=== PATIENT | male | born 1975 | race Caucasian/White ===

== ENCOUNTER 2017-08-11 14:26 | Day surgery (SDC) | payer OTHER ==
[2017-08-11] MEDS ORDERED: LR 1,000 ML IV ONE (14:36)
[2017-08-11 14:49] VITALS: PULSE 93
--- NOTE | 2017-08-11 15:45 | PDANEPAE ---
ANE History of Present Illness here for EGD/EUS ANE Past Medical History - Cardiovascular History Hx Hypertension: No Hx Arrhythmias: Yes Hx Chest Pain: No Cardiovascular History Comment: HX OF AFIB 2 EPISODES @10 YRS AGO - Pulmonary History Hx COPD: No Hx Asthma/Reactive Airway Disease: No Hx Recent Upper Respiratory Infection: No Hx Oxygen in Use at Home: No Hx Sleep Apnea: No Sleep Apnea Screening Result - Last Documented: Negative - Neurologic History Hx Cerebrovascular Accident: No Hx Seizures: No Hx Dementia: No - Endocrine History Hx Diabetes: No - Renal History Hx Renal Disorders: No - Liver History Hx Hepatic Disorders: Yes Hepatic History Comment: DECREASED LIVER FUNCTION - Neurological & Psychiatric Hx Hx Neurological and Psychiatric Disorders: No - Cancer History Hx Cancer: No - Congenital Disorder History Hx Congenital Disorders: No - GI History Hx Gastrointestinal Disorders: Yes Gastrointestinal History Comment: ULCERTIVE COLITIS - Other Health History Other Health History: IRON DEFIECENCY ANEMIA. 2 INFUSIONS OF IRON - Chronic Pain History Chronic Pain: No - Surgical History Prior Surgeries: CHOLEYCYSTITIS,MULTIPLE EGD'S ANE Review of Systems Review of systems is: negative Review of Systems: - Exercise capacity Exercise capacity: >=4 METS METS (RN): 4 METS ANE Patient History - Allergies Allergies/Adverse Reactions: ertapenem [From Invanz] Allergy (Mild, Verified 08/08/17 19:48) Rash - Home Medications Home medications: home medication list seen and reviewed Home Medications: Aspirin [Aspirin 81mg (OTC)] 04/26/13 [Last Taken 08/08/17] Ibuprofen [Motrin 200 mg (OTC)] 04/26/13 [Last Taken 07/21/17] Ursodiol [Actigall] 04/26/13 [Last Taken 08/10/17] diphenhydrAMINE [Benadryl 50 MG (OTC)] 04/26/13 [Last Taken 08/10/17] - NPO status NPO Since - Liquids (Date): 08/11/17 NPO Since - Liquids (Time): 22:30 NPO Since - Solids (Date): 08/10/17 NPO Since - Solids (Time): 21:00 - Smoking Hx Smoking Status: Never smoked - Family Anes Hx Family Hx Anesthesia Complications: NONE ANE Labs/Vital Signs - Vital Signs Blood Pressure: 144/100 Heart Rate: 93 Respiratory Rate: 16 O2 Sat (%): 96 Height: 185.42 cm Weight: 95.254 kg ANE Physical Exam - Airway Neck exam: FROM Mallampati Score: Class 1 - Pulmonary Pulmonary: no respiratory distress - Cardiovascular Cardiovascular: regular rate and rhythym - ASA Status ASA Status: II ANE Anesthesia Plan Anesthesia Plan: general endotracheal anesthesia, GA with mask
[2017-08-11] MEDS ORDERED: fentaNYL 100 MCG/2 ML INJ IVP PRN (15:47)
[2017-08-11] MEDS ORDERED: NALOXONE HCL 0.4 MG/ML INJ IVP PRN (15:47)
[2017-08-11] MEDS ORDERED: HYDROmorphONE/DILAUDID 1 MG/ML INJ IVP PRN (15:47)
[2017-08-11] MEDS ORDERED: PROMETHAZINE HCL 25 MG/ML INJ IVP PRN (15:47)
[2017-08-11] MEDS ORDERED: NS 500 ML IV PRN (15:47)
[2017-08-11] MEDS ORDERED: ALBUTEROL 3 ML DEYVIAL IH PRN (15:47)
[2017-08-11] MEDS ORDERED: DEXAMETHASONE 4 MG/ML VIAL IVP PRN (15:47)
[2017-08-11] MEDS ORDERED: PROPOFOL/EMULSION 500 MG/50 ML BOTTLE IV ONE ×2 (16:04→16:15)
[2017-08-11] MEDS ORDERED: PROPOFOL 200 MG/20 ML VIAL ONE ×2 (16:33→16:46)
[2017-08-11] MEDS ORDERED: INDOMETHACIN 50 MG SUPP PR PRN (16:56)
--- NOTE | 2017-08-11 16:56 | PDGENHP ---
History & Physical Chief Complaint: abnl enlarged l.n. History of Present Illness: 42 year old male with a hx of UC with J pouch, PSC? presents for evaluation of abnormal enlarged lymph nodes. Pertinent Past, Social, Family History: PMHx: UC, PSC. FaMHx: no lymphoma Relevant Physical Exam: HEENT: anicteric. CV: RRR +s1s2. Lungs: CTAB. Abd: soft, nt, + bs Cardiorespiratory Assessment: ASA 2
[2017-08-11] MEDS ORDERED: NS 500 ML IV SCH (17:00)
--- NOTE | 2017-08-11 17:04 | GIREPORT ---
[facility] Surgical [facility] - Endoscopy Department Patient Name: David Michael Procedure Date: 08/11/2017 8:43 AM Patient Type: Outpatient Attending MD/ ER Physician: Yovani Arias MD Procedure: Upper EUS Indications: Abnormal abdominal/pelvic CT scan, Epigastric abdominal pain, Dyspepsia Patient Profile: 42 year old male presents for evaluation of epigastric pain, dyspepsia, and abnormal CT scan.. Providers: Yovani Arias MD Medicines: Monitored Anesthesia Care Complications: No immediate complications. Estimated blood loss: Minimal. Description of Procedure: After obtaining informed consent, the endoscope was passed under direct vision. Throughout the procedure, the patient's blood pressure, pulse, and oxygen saturations were monitored continuously. The Endoscope was intro duced through the mouth, and advanced to the second part of duodenum. The Endosonoscope was introduced through the mouth, and advanced to the sec ond part of duodenum. The upper EUS was accomplished without difficulty. Th e patient tolerated the procedure well. Findings: Endoscopic Finding : The examined esophagus was normal. A small hiatal hernia was present. Patchy mildly erythematous mucosa was found in the gastric body and in the gastric antrum. Biopsies were taken with a cold forceps for histology. The examined duodenum was normal. Endosonographic Finding : Many enlarged lymph nodes were visualized in the wu hepatis region. There was at least 5-7 lymph nodes noted from 1cm -4cm in size. They were all ill defined, irregular, and isoechoic The largest measured 35 mm by 39 mm i n maximal cross-sectional diameter. The nodes were irregular, isoechoic a nd had poorly defined margins. Fine needle aspiration for cytology was performed of the largest lymph nodes.. Color Doppler imaging was utiliz ed prior to needle puncture to confirm a lack of significant vascular structures within the needle path. Three passes were made with the 25 g auge needle using a transduodenal approach. A stylet was used. A cyber legal advisor was present and performed a preliminary cytologic examination. The cellular ity of the specimen was adequate. Two passes were made directly into flow cytometry. Pancreatic parenchymal abnormalities were noted in the entire pancreas. These consisted of hyperechoic foci. There was no sign of significant endosonographic abnormality in the visualized portion of the liver. No masses were identified. No gallblad jonathan was visualized. There was no sign of significant endosonographic abnormality in the com mon bile duct. The maximum diameter of the duct was 6 mm. Estimated Blood Loss: Estimated blood loss was minimal. Post Op Diagnosis: - Normal esophagus. - Small hiatal hernia. - Erythematous mucosa in the gastric body and antrum. Biopsied. - Normal examined duodenum. - Many enlarged lymph nodes were visualized in the wu hepatis region . Fine needle aspiration performed. - Pancreatic parenchymal abnormalities consisting of hyperechoic foci w ere noted in the entire pancreas. - There was no evidence of significant pathology in the visualized port ion of the liver. - Etiology? Reactive? Await cytology results. Recommendation: - Discharge patient to home (with escort). - Await cytology results and await path results. - More recommendations once cytology and pathology are back. - Continue present medications. - Advance diet as tolerated. - Thank you for allowing me to participate in the care of your patient. Attending Participation: I personally performed the entire procedure. Yovani Arias MD Yovani Arias MD 08/11/2017 5:04:27 PM This report has been signed electronicallyYovani Arias MD Number of Addenda: 0 Note Initiated On: 08/11/2017 8:43 AM [email or web address]
[2017-08-11] MEDS ORDERED: fentaNYL 100 MCG/2 ML INJ ONE (17:40)
[2017-08-11 17:49] VITALS: TEMP 98.1
[2017-08-11 19:12] VITALS: RESP 16
[2017-08-11 19:14] VITALS: BP 116/85; O2SAT 94
[2017-08-14 11:26] LABS: FINAL DIAGNOSIS See Comments; MICROSCOPIC DESCRIPTION See Comments; SPECIAL STUDIES See Comments
== END 2017-08-11 19:00 | disposition home or self-care (01) ==
LOC: FSGY 14:26
PROVIDERS: ATTEND Internal Medicine Gastroenterology
PROC: 07BB3ZX Excision of Mesenteric Lymphatic, Percutaneous Approach, Diagnostic (ICD-10-PCS; principal; 2017-08-11 16:00)
PROC: 0DB68ZX Excision of Stomach, Via Natural or Artificial Opening Endoscopic, Diagnostic (ICD-10-PCS; principal; 2017-08-11 16:00)
DX: R59.9 Enlarged lymph nodes, unspecified (principal); K44.9 Diaphragmatic hernia without obstruction or gangrene
CPT/HCPCS: 85060-90; 88184-90; 88185-91; J2704; J3010